=== PATIENT | female | born 1980 | race Caucasian/White ===

== ENCOUNTER 2017-02-19 08:47 | Inpatient (IN) | payer BC ==
[2017-02-19 09:51] LABS: ROM Internal QC QC Line Present
[2017-02-19 11:27] LABS: Hematocrit 41 % (35-47); Hemoglobin 13.7 g/dl (12.0-16.0); Mean Corpuscular HGB Conc 33 g/dl (31-36); Mean Corpuscular Hemoglobin 28 pg (27-31); Mean Corpuscular Volume 85 fL (80-97); Mean Platelet Volume 10 um3 (7.4-10.4); Red Blood Count 4.82 10^6/ul (4.0-5.4); Red Cell Distribution Width 14 % (10.5-15); White Blood Count 13.2 10^3/ul (3.5-10.8)
[2017-02-19] MEDS: Oxytocin in LR* 20 UNITS/1,000 ML BAG IVPB SCH (16:21)
[2017-02-20] MEDS ORDERED: OBEPIDURAL* 250 ML ONE (03:41)
[2017-02-20] MEDS ORDERED: fentaNYL* 50 MCG/ML 2 ML VIAL (100 MCG VIAL) ONE (03:41)
[2017-02-20] MEDS ORDERED: Famotidine TAB* 20 MG PO PRN (04:30)
[2017-02-20] MEDS ORDERED: Phenylephrine IV* 40 MCG/ML 10 ML SYRINGE IV PUSH PRN ×2 (04:30)
[2017-02-20] MEDS ORDERED: Sodium Citrate/Citric Acid* 15 ML UDC PO PRN (04:30)
[2017-02-20] MEDS ORDERED: OBEPIDURAL* 250 ML EPIDURAL SCH (05:00)
[2017-02-20] MEDS ORDERED: Acetaminophen SUPP* 650 MG SUPP PR ONE (10:27)
[2017-02-20] MEDS ORDERED: Acetaminophen SUPP* 650 MG SUPP ONE (10:29)
[2017-02-20] MEDS ORDERED: Ibuprofen TAB* 600 MG PO PRN (12:17)
[2017-02-20] MEDS ORDERED: Acetaminophen TAB* 325 MG PO PRN (12:17)
[2017-02-20] MEDS ORDERED: Dibucaine 1% 28.35 GM TUBE PR PRN (12:17)
[2017-02-20] MEDS ORDERED: Witch Hazel PAD* JAR TOPICAL PRN (12:17)
[2017-02-20] MEDS ORDERED: Glycerin ADULT SUPP PR PRN (12:17)
[2017-02-20] MEDS ORDERED: Simethicone TAB* 80 MG TAB.CHEW PO SCH (12:30)
[2017-02-20] MEDS ORDERED: ceFAZolin 2 GM PREMIX (*) 2 GM/50 ML BAG IVPB SCH (13:00)
[2017-02-20] MEDS ORDERED: Oxytocin in LR* 20 UNITS/1,000 ML BAG IVPB SCH (13:00)
[2017-02-20] MEDS ORDERED: Ibuprofen TAB* 600 MG ONE (13:24)
[2017-02-20] MEDS ORDERED: Witch Hazel PAD* JAR ONE (13:25)
[2017-02-20] MEDS: ceFAZolin 2 GM PREMIX (*) 2 GM/50 ML BAG IVPB SCH ×2 (13:39→21:55)
[2017-02-20] MEDS ORDERED: Oxytocin in LR* 20 UNITS/1,000 ML BAG IVPB ONE (14:13)
[2017-02-20] MEDS: Oxytocin in LR* 20 UNITS/1,000 ML BAG IVPB SCH (14:17)
[2017-02-20] MEDS ORDERED: Misoprostol TAB* 200 MCG ONE (15:47)
[2017-02-20 16:33] LABS: Hematocrit 29 % (35-47); Hemoglobin 9.5 g/dl (12.0-16.0); Mean Corpuscular HGB Conc 33 g/dl (31-36); Mean Corpuscular Hemoglobin 28 pg (27-31); Mean Corpuscular Volume 85 fL (80-97); Mean Platelet Volume 9 um3 (7.4-10.4); Red Blood Count 3.36 10^6/ul (4.0-5.4); Red Cell Distribution Width 14 % (10.5-15); White Blood Count 29.8 10^3/ul (3.5-10.8)
[2017-02-20] MEDS: Docusate CAP* 100 MG PO SCH (23:07)
[2017-02-21 08:17] LABS: Hematocrit 26 % (35-47); Hemoglobin 8.7 g/dl (12.0-16.0); Mean Corpuscular HGB Conc 34 g/dl (31-36); Mean Corpuscular Hemoglobin 29 pg (27-31); Mean Corpuscular Volume 85 fL (80-97); Mean Platelet Volume 9 um3 (7.4-10.4); Red Blood Count 3.06 10^6/ul (4.0-5.4); Red Cell Distribution Width 14 % (10.5-15)
[2017-02-21 08:18] LABS: Comments Flag Yes
[2017-02-21 08:19] LABS: Add Diff/Slide Review? Slide Review Added
[2017-02-21] MEDS ORDERED: Measles, Mumps,Rubella VACC* 0.5 ML/VIAL SUBCUT ONE (09:00)
[2017-02-21] MEDS: Docusate CAP* 100 MG PO SCH ×3 (09:05→21:43)
[2017-02-21] MEDS: Ferrous Gluconate TAB* 324 MG TAB PO SCH ×2 (09:05→21:43)
[2017-02-22 08:26] VITALS: BP 110/75
[2017-02-22] MEDS: Docusate CAP* 100 MG PO SCH (09:45)
[2017-02-22] MEDS: Ferrous Gluconate TAB* 324 MG TAB PO SCH (09:45)
[2017-02-22] MEDS ORDERED: Measles, Mumps,Rubella VACC* 0.5 ML/VIAL SUBCUT ONE (14:00)
== END 2017-02-22 14:36 | disposition home or self-care (01) | DRG 541 ==
LOC: MCHOBOUT 08:47 → MCHOB 09:30
PROVIDERS: ADMIT Obstetrics & Gynecology; ATTEND Obstetrics & Gynecology
PROC: 10E0XZZ Delivery of Products of Conception, External Approach (ICD-10-PCS; principal; 2017-02-20)
PROC: 0HQ9XZZ Repair Perineum Skin, External Approach (ICD-10-PCS; 2017-02-20)
PROC: 10D17Z9 Manual Extraction of Products of Conception, Retained, Via Natural or Artificial Opening (ICD-10-PCS; 2017-02-20)
DX: O42.02 Full-term premature rupture of membranes, onset of labor within 24 hours of rupture (principal); O72.0 Third-stage hemorrhage; D25.9 Leiomyoma of uterus, unspecified; O70.0 First degree perineal laceration during delivery; O34.13 Maternal care for benign tumor of corpus uteri, third trimester; O90.81 Anemia of the puerperium; D64.9 Anemia, unspecified; O69.81X0 Labor and delivery complicated by cord around neck, without compression, not applicable or unspecified; O77.0 Labor and delivery complicated by meconium in amniotic fluid; Z3A.38 38 weeks gestation of pregnancy; Z37.0 Single live birth
CPT/HCPCS: 36415; 76815; 84112; 85025; 85027; 86850; 86900; 86901; 90707; A9270-GY; J0690; J3010

== ENCOUNTER 2018-04-23 19:30 | Emergency (ER) | payer BC ==
[2018-04-23 19:52] VITALS: BP 118/78
--- NOTE | 2018-04-23 20:02 | ED ---
Abdominal Pain/Female - HPI Summary HPI Summary: 37 yr old female with right sided abdominal pain, and NVD since 330 am today. She has had pain that waxes and wanes in the right abdomen, but has not gone away. It is not relieved with diarrhea. She has not had fever. She has had chills. She has not been able to keep things down despite trying to eat and drink today. Pain is moderate and right sided mostly in the right upper quadrant. She still has her GB and Appendix. - History of Current Complaint Chief Complaint: UCGeneralIllness Stated Complaint: VOMITING/DIARRHEA/PAIN RIGHT SIDE Time Seen by Provider: 04/23/18 19:54 Hx Last Menstrual Period: 04/17/18 Pain Intensity: 3 Allergies/Adverse Reactions: Allergies Allergy/AdvReac Type Severity Reaction Status Date / Time Penicillins Allergy Intermediate Hives Verified 04/23/18 19:52 Home Medications: Home Medications NK [No Home Medications Reported] 04/23/18 [History Confirmed 04/23/18] PMH/Surg Hx/FS Hx/Imm Hx Endocrine/Hematology History: Denies: Hx Diabetes Cardiovascular History: Denies: Hx Hypertension, Hx Pacemaker/ICD Respiratory History: Reports: Hx Asthma History: Denies: Hx Renal Disease Sensory History: Denies: Hx Hearing Aid Psychiatric History: Denies: Hx Panic Disorder - Surgical History Surgery Procedure, Year, and Place: tonsilectomy, L knee x 3 with screw Infectious Disease History: No Infectious Disease History: Denies: Traveled Outside the [place] in Last 30 Days - Family History Known Family History: Positive: Other - brother had DVT in his 30's; maternal aunt with migraine. - Social History Occupation: Employed Full-time Alcohol Use: Rare Substance Use Type: Reports: None Hx Tobacco Use: No Smoking Status (MU): Never Smoked Tobacco Review of Systems Positive: Chills Positive: Abdominal Pain, Vomiting, Diarrhea, Nausea All Other Systems Reviewed And Are Negative: Yes Physical Exam Triage Information Reviewed: Yes Vital Signs On Initial Exam: Initial Vitals Temp Pulse Resp BP Pulse Ox 99.0 F 80 18 118/78 100 04/23/18 19:47 04/23/18 19:47 04/23/18 19:47 04/23/18 19:47 04/23/18 19:47 Vital Signs Reviewed: Yes Appearance: Positive: Well-Appearing, No Pain Distress Skin: Positive: Warm, Skin Color Reflects Adequate Perfusion Head/Face: Positive: Normal Head/Face Inspection Eyes: Positive: EOMI ENT: Positive: Pharynx normal Neck: Positive: Nontender Respiratory/Lung Sounds: Positive: Clear to Auscultation, Breath Sounds Present Cardiovascular: Positive: RRR. Negative: Murmur Abdomen Description: Positive: Other: - tender right side mid to upper abdomen Musculoskeletal: Positive: Strength/ROM Intact Neurological: Positive: Sensory/Motor Intact, Alert, Oriented to Person Place, Time, CN Intact II-III Psychiatric: Positive: Normal - [place] Coma Scale Best Eye Response: 4 - Spontaneous Best Motor Response: 6 - Obeys Commands Best Verbal Response: 5 - Oriented Coma Scale Total: 15 Diagnostics - Vital Signs Vital Signs Temp Pulse Resp BP Pulse Ox 04/23/18 19:47 99.0 F 80 18 118/78 100 - Laboratory Lab Statement: Any lab studies that have been ordered have been reviewed, and results considered in the medical decision making process. Abdominal Pain Fem Course/Dx - Course Course Of Treatment: 37 yr old with right upper and mid abdominal pain. She will have parents drive to [place] [facility] for further eval and work up. - Diagnoses Provider Diagnoses: Right sided abdominal pain Discharge - Sign-Out/Discharge Documenting (check all that apply): Patient Departure All imaging exams completed and their final reports reviewed: No Studies - Discharge Plan Condition: Good Disposition: HOME-RECOMMEND TO ED Patient Education Materials: Abdominal Pain (ED) Referrals: No Primary Care Phys,NOPCP [Primary Care Provider] - Additional Instructions: Go to the ER in [place] right after leaving here for further work up, and treatment. - Billing Disposition and Condition Condition: GOOD Disposition: Home-Recommend to ED
== END 2018-04-23 20:05 | disposition home health service (06) ==
LOC: UCCORT 19:30
DX: R10.11 Right upper quadrant pain (principal); R11.2 Nausea with vomiting, unspecified; R19.7 Diarrhea, unspecified
CPT/HCPCS: 99212; G0463

== ENCOUNTER → 2018-04-23 20:51 | Emergency (ER) | payer BC ==
[~2018-04-23 20:51] MED LIST: Ketorolac INJ* 30 MG/ML 1 ML VIAL IV PUSH ONE; NS 0.9% 1000 ML** 1,000 ML IV ONE; O ndansetron ODT 4MG 5TAB PRPK 4 MG PAK PO ONE; Ondansetron INJ* 2 MG/ML VIAL IV ONE; Ondansetron ODT TAB* 4 MG ONE
[2018-04-23 22:14] LABS: ABS Basophils 0 10^3/ul (0-0.2); ABS Eosinophils 0 10^3/ul (0-0.6); ABS Lymphocytes 0.5 10^3/ul (1.0-4.8); ABS Monocytes 0.3 10^3/ul (0-0.8); ABS Nucleated RBC 0 10^3/ul; Eosinophil % 0.4 %; Hematocrit 41 % (35-47); Hemoglobin 13.8 g/dl (12.0-16.0); Lymphocyte % 7.1 %; Mean Corpuscular HGB Conc 33 g/dl (31-36); Mean Corpuscular Hemoglobin 30 pg (27-31); Mean Corpuscular Volume 89 fL (80-97); Mean Platelet Volume 8.9 fL (7.4-10.4); Nucleated Red Blood Cells % 0; Platelet Count 171 10^3/ul (150-450); Red Blood Count 4.64 10^6/ul (4.00-5.40); Red Cell Distribution Width 13 % (10.5-15); White Blood Count 6.9 10^3/ul (3.5-10.8)
[2018-04-23 22:17] LABS: Urine Appearance Cloudy; Urine Bacteria Absent (Absent); Urine Bilirubin Negative (Negative); Urine Blood Negative (Negative); Urine Color Amber; Urine Glucose Negative (Negative); Urine Ketones 2+ (Negative); Urine Nitrite Negative (Negative); Urine Protein 1+(30 mg/dL) (Negative); Urine Red Blood Cell 2+(6-10/hpf) (Absent); Urine Specific Gravity 1.032 (1.010-1.030); Urine Squamous Epithelial Cell Present (Absent); Urine Urobilinogen Negative (Negative); Urine White Blood Cell Absent (Absent)
--- NOTE | 2018-04-23 22:25 | ED ---
GI/ HPI - HPI Summary HPI Summary: Patient is a 37-year-old female with 1 day hx RUQ pain. Onset of pain was 3:00 yesterday morning and patient experienced several episodes of vomiting and diarrhea at this time, which has continued through the day today. Most recent episode of vomiting presented with blood. She also admits to feeling hot and cold throughout the day. Patient denies any chest pain, palpitations, lightheadedness, cough, or congestion. She notes daughter had been sick 4 days ago with similar vomiting and diarrhea. Denies hx GERD or colitis. LMP 1 week ago. Was seen earlier today at [place] [facility] and sent here for further evaluation. - History of Current Complaint Chief Complaint: EDAbdPain Time Seen by Provider: 04/23/18 21:35 Stated Complaint: ABD PAIN, NAUSEA Hx Last Menstrual Period: 04/17/18 Pain Intensity: 4 - Allergy/Home Medications Allergies/Adverse Reactions: Allergies Allergy/AdvReac Type Severity Reaction Status Date / Time Penicillins Allergy Intermediate Hives Verified 04/23/18 19:52 PMH/Surg Hx/FS Hx/Imm Hx Endocrine/Hematology History: Denies: Hx Diabetes Cardiovascular History: Denies: Hx Hypertension, Hx Pacemaker/ICD Respiratory History: Reports: Hx Asthma History: Denies: Hx Renal Disease Sensory History: Denies: Hx Hearing Aid Psychiatric History: Denies: Hx Panic Disorder - Surgical History Surgery Procedure, Year, and Place: tonsilectomy, L knee x 3 with screw Infectious Disease History: No Infectious Disease History: Denies: Traveled Outside the [place] in Last 30 Days - Family History Known Family History: Positive: Other - brother had DVT in his 30's; maternal aunt with migraine. - Social History Alcohol Use: Rare Substance Use Type: Reports: None Hx Tobacco Use: No Smoking Status (MU): Never Smoked Tobacco Review of Systems Negative: Fever Negative: Chest Pain Negative: Shortness Of Breath Positive: Abdominal Pain, Vomiting, Diarrhea, Nausea All Other Systems Reviewed And Are Negative: Yes Physical Exam Triage Information Reviewed: Yes Vital Signs On Initial Exam: Initial Vitals Temp Pulse Resp BP Pulse Ox 99.4 F 89 16 114/72 99 04/23/18 20:53 04/23/18 20:53 04/23/18 20:53 04/23/18 20:53 04/23/18 20:53 Vital Signs Reviewed: Yes Appearance: Positive: Well-Appearing Skin: Positive: Warm, Dry Head/Face: Positive: Normal Head/Face Inspection Eyes: Positive: Normal, Conjunctiva Clear ENT: Positive: Pharynx normal Respiratory/Lung Sounds: Positive: Clear to Auscultation, Breath Sounds Present Cardiovascular: Positive: Normal, RRR Abdomen Description: Positive: Soft, Other: - tenderness RUQ Bowel Sounds: Positive: Present Musculoskeletal: Positive: Normal Neurological: Positive: Normal Psychiatric: Positive: Normal Diagnostics - Vital Signs Vital Signs Temp Pulse Resp BP Pulse Ox 04/23/18 20:53 99.4 F 89 16 114/72 99 - Laboratory Lab Results: Lab Results 04/23/18 Range/Units 22:05 WBC 6.9 (3.5-10.8) 10^3/ul RBC 4.64 (4.00-5.40) 10^6/ul Hgb 13.8 (12.0-16.0) g/dl Hct 41 (35-47) % MCV 89 (80-97) fL MCH 30 (27-31) pg MCHC 33 (31-36) g/dl RDW 13 (10.5-15) % Plt Count 171 (150-450) 10^3/ul MPV 8.9 (7.4-10.4) fL Neut % (Auto) 87.4 % Lymph % (Auto) 7.1 % Kendall % (Auto) 4.9 % Eos % (Auto) 0.4 % Baso % (Auto) 0.2 % Absolute Neuts (auto) 6.0 (1.5-7.7) 10^3/ul Absolute Lymphs (auto) 0.5 L (1.0-4.8) 10^3/ul Absolute Monos (auto) 0.3 (0-0.8) 10^3/ul Absolute Eos (auto) 0 (0-0.6) 10^3/ul Absolute Basos (auto) 0 (0-0.2) 10^3/ul Absolute Nucleated RBC 0 10^3/ul Nucleated RBC % 0 Result Diagrams: 04/23/18 22:05 04/23/18 22:05 Lab Statement: Any lab studies that have been ordered have been reviewed, and results considered in the medical decision making process. - Ultrasound No standard instances Ultrasound Interpretation Completed By: Radiologist Summary of Ultrasound Findings: IMPRESSION: Cholelithiasis without evidence of acute cholecystitis. GIGU Course/Dx - Course Course Of Treatment: 37-year-old female presents with nausea vomiting diarrhea for the past day. She also admits to right upper quadrant pain. She is unable to keep anything down. She denies any fevers. Daughter was sick with similar symptoms. No previous belly surgeries. On exam hias tenderness right upper quadrant. No rebound. white blood cell count normal. CRP elevated. Urine shows no infection. gallbladder u/s shows cholelithasis without cholecysitis. patient declined zofran but was able to tolerate crackers. will send home with zofran. gave referral to surgery. patient understand and agrees with plan. - Diagnoses Differential Diagnoses - Female: Cholelithiasis, Cholecystitis, Gastroenteritis (Viral), Urinary Tract Infection Provider Diagnoses: Nausea vomiting and diarrhea, Cholelithiasis Discharge - Sign-Out/Discharge Documenting (check all that apply): Patient Departure Patient Received Moderate/Deep Sedation with Procedure: No - Discharge Plan Condition: Good Disposition: HOME Patient Education Materials: Gallstones (ED), Acute Nausea and Vomiting (ED) Referrals: Keo Beach MD [Medical Doctor] - No Primary Care Phys,NOPCP [Primary Care Provider] - Additional Instructions: Can take Zofran every 6 hours as needed for nausea Drink small amounts of fluid as tolerated When able to eat follow BRAT diet: Bananas, rice, applesauce, toast Take ibuprofen or Tylenol for pain as needed every 6 hours Follow up with surgery Return to ED if develop any new or worsening symptoms - Billing Disposition and Condition Condition: GOOD Disposition: Home
[2018-04-23 22:31] LABS: ALT 15 U/L (7-52); AST 16 U/L (13-39); Albumin 4.3 g/dL (3.2-5.2); Alkaline Phosphatase 56 U/L (34-104); Anion Gap 7 mmol/L (2-11); Blood Urea Nitrogen 15 mg/dL (6-24); C Reactive Protein 16.29 mg/L (<8.01); CO2 Carbon Dioxide 27 mmol/L (22-32); Chloride 102 mmol/L (101-111); EGFR African American 104.6 (>60); EGFR Non-African American 86.5 (>60); Globulin 2.2 g/dL (2-4); Glucose 113 mg/dL (70-100); Sodium 136 mmol/L (135-145); Total Protein 6.5 g/dL (6.4-8.9)
[2018-04-23 22:37] LABS: HCG Pregnancy < 0.60 mIU/mL
[2018-04-23 23:40] VITALS: BP 125/76
== END | disposition home or self-care (01) ==
LOC: ED 20:51
DX: K80.20 Calculus of gallbladder without cholecystitis without obstruction (principal); R11.2 Nausea with vomiting, unspecified; R19.7 Diarrhea, unspecified; R10.9 Unspecified abdominal pain
CPT/HCPCS: 36415; 76705; 80053; 81003; 81015; 83690; 84702; 85025; 86140; 96361; 96374; 96375; 99283; A9270-GY; J1885; J2405

== ENCOUNTER 2019-05-09 15:29 | Inpatient (IN) | payer BC ==
[2019-05-09] MEDS ORDERED: Buffered Lidocaine 1% SYRIN* 1 ML/SYRINGE INTRADERM ONE (16:28)
[2019-05-09] MEDS ORDERED: Lactated Ringers 1000 ML Bag* 1,000 ML IV ONE (16:28)
--- NOTE | 2019-05-09 16:38 | HP ---
General Information - Reason for Visit contractions q 5-10 minutes - General Information Maternal Age: 38 Grav: 2 Para: 1 SAB: 0 IEA: 0 Estimated Due Date: 05/13/19 Determined By: LMP Maternal Blood Type and Rh: A Positive - Results this Serology/RPR Result: Non-Reactive Rubella Result: Non-Immune HBsAg Result: Negative HIV Result: Negative GBS Culture Result: Negative Past Medical History Delivery History: Hx Uncomplicated Vaginal Delivery Pertinent Past Medical History: See Records Pertinent Past Surgical History: See Records Pertinent Family History: Non-Contributory - Antepartal Records Antepartal Records: Reviewed, Uncomplicated Review of Systems Constitutional: Uncomfortable CV Complaint: No Respiratory: Shortness of Breath: No Gastrointestinal: No Nausea/Vomiting Genitourinary: No Bleeding, No Leaking Fluid Musculoskeletal: Contractions Neurological: No Headache Movement: Normal Exam Allergies/Adverse Reactions: Allergies Penicillins Allergy (Intermediate, Verified 04/23/18 19:52) Hives Vital Signs 05/09/19 15:40 Temperature 98.7 F Pulse Rate 83 Respiratory 22 Rate Blood Pressure 129/86 (mmHg) O2 Sat by Pulse 100 Oximetry - Measurements Height: 5 ft 3 in Weight: 155 lb Weight in lbs: 155.909337 Body Mass Index (BMI): 27.4 Pre- Weight: 131 lb Weight Gained This : 24 lbs and 0 ozs - Exam Breast: Breast Exam Deferred Extremities: No Edema Heart: Normal Rhythm/Heart Sounds HEENT: No Significant Findings Lungs: Clear Bilaterally Rectal: Rectal Exam Deferred Reflexes: DTR 2+ Targeted Exam Findings Estimated Weight: 6 lbs 12 ozs Cervical Exam: 6cm Effacement: 80% Station: -1 Presenting Part: Vertex Membrane Status: Intact EFM Findings - External Monitor Findings External Monitor Findings: Accelerations Present, No Pattern of Variable or Late Decelerations, Variability Moderate, Baseline Stable Contractions: Regular, Moderate, 45-90 Seconds Assessment/Plan - Assessment 38 at term in labor . will admit and arom . pt would like an epidural. - Plan Plan: Admit - Anticipate Vaginal Delivery
[2019-05-09 16:48] LABS: ABS Eosinophils 0.1 10^3/ul (0-0.6); ABS Lymphocytes 1.4 10^3/ul (1.0-4.8); ABS Monocytes 0.6 10^3/ul (0-0.8); ABS Neutrophils 6.9 10^3/ul (1.5-7.7); Eosinophil % 0.6 %; Hematocrit 40 % (35-47); Hemoglobin 13.7 g/dL (12.0-16.0); Lymphocyte % 15.3 %; Mean Corpuscular HGB Conc 34 g/dL (31-36); Mean Corpuscular Hemoglobin 30 pg (27-31); Mean Corpuscular Volume 90 fL (80-97); Mean Platelet Volume 9.4 fL (7.4-10.4); Nucleated Red Blood Cells % 0.1; Platelet Count 162 10^3/uL (150-450); Red Blood Count 4.48 10^6 /uL (3.70-4.87); Red Cell Distribution Width 14 % (10-15)
[2019-05-09] MEDS ORDERED: Lactated Ringers 1000 ML Bag* 1,000 ML IV SCH ×2 (17:00→23:00)
[2019-05-09] MEDS ORDERED: OBEPIDURAL* 250 ML EPIDURAL ONE (17:15)
[2019-05-09 17:27] LABS: Urine Benzodiazepine Screen None Detected (None Detect); Urine Opiates Screen None Detected (None Detect)
[2019-05-09] MEDS ORDERED: Oxytocin in LR* 20 UNITS/1,000 ML BAG IVPB ONE (18:42)
--- NOTE | 2019-05-09 18:47 | PN ---
Progress Note - Progress Note Date of Service: 05/09/19 Note: pt with increased heart rate since placement of epidural . ephedrine for low bp given .left lateral position. 02 applied . iv fluid running in. pt with a rim. still -2 station . Still with moderate variabilty . Feel we are close to delivery with perhaps a little augmentation currently no evidence for interruption of oxygen or metabolic acidosis. Perhaps some compensation to lower bp with epidural will add gentle augmentation
[2019-05-09] MEDS ORDERED: Oxytocin in LR* 20 UNITS/1,000 ML BAG IVPB SCH ×2 (19:00→23:00)
[2019-05-09] MEDS ORDERED: Glycerin ADULT SUPP PR PRN (22:03)
[2019-05-09] MEDS ORDERED: Witch Hazel PAD* JAR TOPICAL PRN (22:03)
[2019-05-09] MEDS ORDERED: Acetaminophen TAB* 325 MG PO PRN (22:03)
[2019-05-09] MEDS ORDERED: Dibucaine 1% 28.35 GM TUBE PR PRN (22:03)
[2019-05-09] MEDS ORDERED: Ammonia Inhalant* 1 EA AMP ONE (23:15)
[2019-05-10] MEDS ORDERED: Phenylephrine 40 MCG/ML SYRINGE ONE (00:05)
--- NOTE | 2019-05-10 05:59 | PROCNOTE ---
[facility] OB: Delivery Note - Delivery A Date of : 05/09/19 Time of : 21:31 Sex: Female Weight at : 7 lb 6 oz Score 1 Minute: 9 Score 5 Minutes: 9 Gestational Age in Weeks and Days at Delivery: 39 Weeks and 3 Days Delivery Method: Spontaneous Vaginal Labor: Spontaneous Did Patient attempt ?: N/A, No Previous Amniotic Fluid: Clear Estimated Blood Loss: 200 Anesthesia/Analgesia: CEI for Labor - Nursery Level of Nursery: Regular/Bedside - Perineum Perineal Injury: None/Intact - Events Delivery Events of Note: Pitocin During Labor, Supplemental O2 to Mother - Additional Delivery Notes Additional Delivery Notes: pt pushed well on her left side with steady descent and delivery.
[2019-05-10] MEDS: Ibuprofen TAB* 600 MG PO PRN ×2 (06:12→15:19)
[2019-05-10 07:06] LABS: ABS Monocytes 0.6 10^3/ul (0-0.8); ABS Neutrophils 9.7 10^3/ul (1.5-7.7); Eosinophil % 0.2 %; Hematocrit 32 % (35-47); Lymphocyte % 9.1 %; Mean Corpuscular HGB Conc 34 g/dL (31-36); Mean Corpuscular Hemoglobin 31 pg (27-31); Mean Corpuscular Volume 90 fL (80-97); Platelet Count 134 10^3/uL (150-450); Red Blood Count 3.57 10^6 /uL (3.70-4.87); Red Cell Distribution Width 15 % (10-15); White Blood Count 11.4 10^3/uL (3.5-10.8)
[2019-05-10] MEDS ORDERED: Simethicone TAB* 80 MG TAB.CHEW PO SCH (08:30)
[2019-05-10] MEDS ORDERED: Measles, Mumps,Rubella VACC* 0.5 ML/VIAL SUBCUT ONE (09:00)
[2019-05-10] MEDS ORDERED: Ferrous Gluconate TAB* 324 MG TAB PO SCH (09:00)
[2019-05-10] MEDS: Docusate CAP* 100 MG PO SCH ×3 (10:24→20:29)
[2019-05-11] MEDS: Docusate CAP* 100 MG PO SCH ×2 (11:49→14:26)
[2019-05-11 11:59] VITALS: BP 128/85
== END 2019-05-11 15:15 | disposition home or self-care (01) | DRG 560 ==
LOC: MCHOBOUT 15:29 → MCHOB 16:29
PROVIDERS: ADMIT Obstetrics & Gynecology; ATTEND Obstetrics & Gynecology
PROC: 10E0XZZ Delivery of Products of Conception, External Approach (ICD-10-PCS; principal; 2019-05-09)
PROC: 10907ZC Drainage of Amniotic Fluid, Therapeutic from Products of Conception, Via Natural or Artificial Opening (ICD-10-PCS; 2019-05-09)
PROC: 4A1HXCZ Monitoring of Products of Conception, Cardiac Rate, External Approach (ICD-10-PCS; 2019-05-09)
DX: O76 Abnormality in fetal heart rate and rhythm complicating labor and delivery (principal); Z37.0 Single live birth; O90.89 Other complications of the puerperium, not elsewhere classified; R33.9 Retention of urine, unspecified; Z3A.39 39 weeks gestation of pregnancy
CPT/HCPCS: 36415; 80307; 85025; 86850; 86900; 86901; A9270-GY; G0480

== ENCOUNTER 2019-05-15 09:49 | Emergency (ER) | payer BC ==
--- NOTE | 2019-05-15 10:12 | ED ---
- HPI Summary HPI Summary: This pt is a 38 Y/O F presenting to [facility] with a CC of stringy stuff which is pinky sized, coming out of her vagina since last night after giving on she had normal bleeding when compared to her first . She states that she has a GPA of 2,2,0. She denies any abdominal pain, headaches, N/ V, SOB, CP, and unusual vaginal discharge. She denies any pertinent PMHx. She denies a SHx of smoking cigarettes and drinking alcohol. She denies any aggravating or alleviating factors. Home medications reviewed. Allergies noted. Home Medications Medication Instructions Recorded Confirmed Type Vitamin TAB* 1 tab PO DAILY 05/05/19 05/09/19 History Acetaminophen TAB* [Tylenol TAB*] 650 mg PO Q4H PRN tab 05/11/19 Rx Ibuprofen TAB* [Motrin TAB* 600 MG] 600 mg PO Q6H PRN tab 05/11/19 Rx - History of Current Complaint Chief Complaint: EDOBProblems Stated Complaint: GENERAL PER PT Time Seen by Provider: 05/15/19 09:56 Hx Obtained From: Patient Chief Complaint: Other: - states "stringy stuff" pinky thick falling out of her vagina Onset/Duration: Started Days Ago - 1, Still Present Timing: Constant Current Severity: None Pain Intensity: 0 Location of Pain: None Aggravating Factors: Nothing Alleviating Factors: Nothing Associated Signs and Symptoms: Negative: Nausea, Vomiting - Assessment Hx Now: No Hx : 2 SAB: 0 IEA: 0 - Additional Pertinent History Maternal Blood Type and Rh: A Positive - Allergies/Home Medications Allergies/Adverse Reactions: Allergies Allergy/AdvReac Type Severity Reaction Status Date / Time Penicillins Allergy Intermediate Hives Verified 05/15/19 10:02 Home Medications: Home Medications Vitamin TAB* 1 tab PO DAILY 05/05/19 [History Confirmed 05/09/19] Acetaminophen TAB* [Tylenol TAB*] 650 mg PO Q4H PRN tab 05/11/19 [Rx] Ibuprofen TAB* [Motrin TAB* 600 MG] 600 mg PO Q6H PRN tab 05/11/19 [Rx] PMH/Surg Hx/FS Hx/Imm Hx Previously Healthy: Yes Endocrine/Hematology History: Denies: Hx Diabetes Cardiovascular History: Denies: Hx Hypertension, Hx Pacemaker/ICD Respiratory History: Reports: Hx Asthma History: Denies: Hx Renal Disease Sensory History: Denies: Hx Hearing Aid Psychiatric History: Denies: Hx Panic Disorder - Cancer History Hx Chemotherapy: No Hx Radiation Therapy: No - Surgical History Surgical History: Yes Surgery Procedure, Year, and Place: tonsilectomy, L knee x 3 with screw - Immunization History Immunizations Up to Date: Yes Infectious Disease History: No Infectious Disease History: Denies: Traveled Outside the [place] in Last 30 Days - Family History Known Family History: Positive: Other - brother had DVT in his 30's; maternal aunt with migraine. - Social History Alcohol Use: None Substance Use Type: Reports: None Hx Tobacco Use: No Smoking Status (MU): Never Smoked Tobacco Review of Systems All Other Systems Reviewed And Are Negative: Yes Physical Exam - Summary Physical Exam Summary: Constitutional: Well-developed, Well-nourished, Alert. (-) Distressed Skin: Warm, Dry HENT: Normocephalic; Atraumatic Eyes: Conjunctiva normal Neck: Musculoskeletal ROM normal neck. (-) JVD, (-) Stridor, (-) Tracheal deviation Cardio: Rhythm regular, rate normal, Heart sounds normal; Intact distal pulses; The pedal pulses are 2+ and symmetric. Radial pulses are 2+ and symmetric. (-) Murmur Pulmonary/Chest wall: Effort normal. (-) Respiratory distress, (-) Wheezes, (-) Rales Abd: Soft, (-) tenderness, (-) Distension, (-) Guarding, (-) Rebound Musculoskeletal: (-) Edema Lymph: (-) Cervical adenopathy Neuro: Alert, Oriented x3 Psych: Mood and affect Normal Vaginal: Membranous tissues appear to be protruding to the cervix. Is not removable easily with forceps, increases pain with tension and on touch. - Physical Exam Triage Information Reviewed: Yes Vital Signs On Initial Exam: Temp Pulse Resp BP SpO2 FiO2 98.0 F 86 16 138/86 99 05/15/19 09:52 05/15/19 09:52 05/15/19 09:52 05/15/19 09:52 05/15/19 09:52 Vital Signs Reviewed: Yes Procedures - Sedation Patient Received Moderate/Deep Sedation with Procedure: No Diagnostics - Vital Signs Vital Signs Temp Pulse Resp BP Pulse Ox 05/15/19 09:52 98.0 F 86 16 138/86 99 - Laboratory Lab Statement: Any lab studies that have been ordered have been reviewed, and results considered in the medical decision making process. Course/Dx - Course Course Of Treatment: Patient is here after having a membranous tissue protruding from her vagina followed childbirth. On exam, patient had membranes present through her cervix. [facility] [employer] was called and they successfully removed the membranes. Patient had no symptoms concerning for infection. - Diagnoses Provider Diagnoses: Retained products of conception - Provider Notifications Discussed Care Of Patient With: Reynold Peguero JR Time Discussed With Above Provider: 10:32 Instructed by Provider To: MD Will See In ED Discharge ED - Sign-Out/Discharge Documenting (check all that apply): Patient Departure - discharge - Discharge Plan Condition: Good Disposition: HOME Patient Education Materials: (ED) Referrals: Jose Mcknight MD [Medical Doctor] - 2 Days Additional Instructions: PLEASE FOLLOW UP WITH [employer] [employer] IN 1-3 DAYS IF NEEDED. PLEASE RETURN TO THE EMERGENCY DEPARTMENT FOR ANY NEW OR WORSENING SYMPTOMS WHICH INCLUDE VAGINAL DISCHARGE, VAGINAL BLEEDING, FEVERS, AND ABDOMINAL PAINS. - Billing Disposition and Condition Condition: GOOD Disposition: Home - Attestation Statements Document Initiated by Scribe: Yes Documenting Scribe: Hermelindo Greenberg Provider For Whom Lukeibe is Documenting (Include Credential): Tyree Morris MD Scribe Attestation: Hermelindo Pressley, scribed for Tyree Morris MD on 05/16/19 at 0949. Scribe Documentation Reviewed: Yes Provider Attestation: The documentation as recorded by the Hermelindo calvert accurately reflects the service I personally performed and the decisions made by , Tyree Morris MD Status of Scribe Document: Viewed
[2019-05-15 11:30] VITALS: BP 131/82
--- NOTE | 2019-05-15 11:36 | PN ---
Progress Note - Progress Note Date of Service: 05/15/19 Note: Pt seen in ED at request of ED physician. Presented to ED 6 days post s/p with concern for "something coming out of vagina." ED physician examined and suspicious for membranes protruding from cervix. On my exam I found membranes protruding from the cervix, these were grasped with a ring forceps and carefully teased out, approximately 10cm of what was consistent with trailing membranes came out along with small dark blood clot. There was no significant active vaginal bleeding. No malodor. Fundus was firm 3 below the umbilicas and without any fundal tenderness. Pt's vital signs all stable, afebrile, normotensive with RRR. Reports she is doing well at home and has no other complaints. OK to be discharged home at this time. F/U in the office for routine 6 week post care. 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 DO BHUPINDER Green
== END 2019-05-15 11:29 | disposition home or self-care (01) ==
LOC: ED 09:49
DX: O73.1 Retained portions of placenta and membranes, without hemorrhage (principal); N89.8 Other specified noninflammatory disorders of vagina
CPT/HCPCS: 99282